=== PATIENT | female | born 1980 | race Caucasian/White ===

== ENCOUNTER 2017-10-15 17:53 | Emergency (ER) | payer OTHER ==
--- NOTE | 2017-10-15 18:14 | EDPHY ---
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 Unknown patient source. She washed her hand immediately and then forgot about it until today She does not recall her last tetanus . Review of systems General no fever no chills no weakness HEENT no eye pain no eye discharge. No eye redness, no sore throat Respiratory no cough, no shortness of breath Cardiac no chest pain, no peripheral edema GI no abdominal pain, no diarrhea, no constipation, no nausea, no vomiting no flank pain, no hematuria, no dysuria Musculoskeletal no myalgias, no joint pain Heme no easy bruising, no easy bleeding Endo no polyuria, no polydipsia Skin no rashes, no pruritus Neuro no syncope, no dizziness, no headaches Psych is no suicidal ideation, no homicidal ideation Past Medical/Surgical History: non contributory Social History: No alcohol drug or tobacco use Smoking Status: Never smoked Physical Exam: 37-year-old female alert and oriented no acute distress nontoxic appearance afebrile No respiratory distress Vital signs stable Right hand right 4th finger volar surface, visible less than 1 mm pinpoint area where there was likely a puncture wound Full range of motion No swelling Good capillary refill Constitutional: Initial Vital Signs Temperature (C) 37 C 10/15/17 17:59 Heart Rate 66 10/15/17 17:59 Respiratory Rate 16 10/15/17 17:59 O2 Sat (%) 96 10/15/17 17:59 O2 Delivery Mode Room Air Allergies/Adverse Reactions: Sulfa (Sulfonamide Antibiotics) Allergy (Verified 10/15/17 18:05) Home Medications: Medication Instructions Recorded Bcp 10/15/17 Spironolactone 10/15/17 Wellbutrin 100mg (*) 10/15/17 Medical Decision Making ED Course/Re-evaluation: Patient seen for possible blood borne exposure at work yesterday Unknown source Thirty instrument from a disc/ir, not a hollow bore Impression Low risk exposure plan blood draw per yellow packet update tetanus referral to occupational health - Data Points Laboratory Results: 10/15/17 18:30 Hep Bs Antibody Pending Hepatitis C Antibody Pending HIV 1&2 Antibody Pending Departure - Departure Disposition: Home, Routine, Self-Care Clinical Impression: Exposure to blood-borne pathogen Condition: Good Instructions: Body Substance Exposure (ED) Referrals: NONE *PRIMARY CARE P,. [Primary Care Provider] - As per Instructions Stand Alone Forms: Work Comp Follow Up
[2017-10-15] MEDS ORDERED: TETANUS, DIPHTHERIA TOX (7YR+) 0.5 ML INJ IM ONE (18:15)
[2017-10-16 00:20] LABS: HEPATITIS C ANTIBODY TOTAL NEGATIVE (NEGATIVE); HIV TYPE 1 AND 2 NEGATIVE (NEGATIVE)
== END 2017-10-15 18:48 | disposition home or self-care (01) ==
LOC: CED 17:53
DX: Z77.21 Contact with and (suspected) exposure to potentially hazardous body fluids (principal); Z23 Encounter for immunization
CPT/HCPCS: G0472